=== PATIENT | male | born 1990 | race Caucasian/White ===

== ENCOUNTER 2016-08-31 16:53 | Emergency (ER) | payer OTHER, MEDICAID ==
[2016-08-31 17:00] VITALS: BP 122/64
--- NOTE | 2016-08-31 17:25 | CR ---
Clinical history: 26-year-old male heard a "pop" when he rolled his ankle. Rule out fracture. Interpretation: 3 views right ankle confirm soft tissue swelling laterally but reveal no sign of und erlying fracture or disruption of the tibiotalar mortise joint symmetry. No dislocation. Minimal ankle joint effusion. No heel spurs. No foreign bodies. CONCLUSION: Right ankle sprain. No fracture.
--- NOTE | 2016-08-31 17:56 | EDM.PDOC ---
ED HPI GENERAL MEDICAL PROBLEM - General Chief Complaint: Lower Extremity Injury/Pain Stated Complaint: WC, ANKLE, [id number] Time Seen by Provider: 08/31/16 17:45 Source of Information: Reports: Patient, Family History Limitations: Reports: No Limitations - History of Present Illness INITIAL COMMENTS - FREE TEXT/NARRATIVE: patient is a 26-year-old male who states he was at work today when he stepped off a piece of equipment and twisted his right ankle. He states he has had soft tissue swelling and pain at the site since that time. He has iced and elevated it and rates his pain a 7/10. He did not take anything for discomfort prior to arrival. He did not fall he did not strike his head he has no other complaints he denies any numbness or tingling Quality: Reports: Ache, Dull Severity: Mild Improves with: Reports: Cold Therapy, Rest Worsens with: Reports: Other (weightbearing), Movement Right Ankle Pain Score (Numeric/FACES): 8 - Related Data Allergies Allergy/AdvReac Type Severity Reaction Status Date / Time amoxicillin trihydrate Allergy Cannot Verified 08/31/16 17:29 [From Augmentin] Remember potassium clavulanate Allergy Cannot Verified 08/31/16 17:29 [From Augmentin] Remember Home Meds: Home Meds . [No Known Home Meds] 03/23/13 [History] Past Medical History - Past Health History Medical/Surgical History: Denies Medical/Surgical History Social & Family History - Tobacco Use Smoking Status *Q: Never Smoker Second Hand Smoke Exposure: Yes - Caffeine Use Caffeine Use: Reports: None - Alcohol Use Days Per Week of Alcohol Use: 0 - Recreational Drug Use Recreational Drug Use: No Review of Systems - Review of Systems Review Of Systems: ROS reveals no pertinent complaints other than HPI. Trauma Exam - Physical Exam Exam: See Below Exam Limited By: No Limitations General Appearance: Reports: Alert, WD/WN, No Apparent Distress Head: Reports: Atraumatic, Normocephalic Respiratory Exam: Reports: No Respiratory Distress, Lungs Clear, Normal Breath Sounds Cardiovascular: Reports: Normal Peripheral Pulses, Regular Rate, Rhythm, No Edema, No Gallop, No JVD, No Murmur, No Rub Extremities: No Pedal Edema, Other (the right ankle is tender to palpation with lateral soft tissue swelling. The joint is stable there is no overlying erythema or induration or signs of toxic joint. Posterior tibial and dorsal pedis pulses intact. There is limited range of motion due to pain and swelling. The knee on the right is stable there is no pain with range of motionsigns of injury to) Skin: Reports: Normal Color, Warm/Dry Course - Vital Signs Last Recorded V/S: Last Vital Signs Temp 98.8 F 08/31/16 16:59 Pulse 77 08/31/16 16:59 Resp 20 08/31/16 16:59 BP 122/64 08/31/16 16:59 Pulse Ox 98 08/31/16 16:59 - Orders/Labs/Meds Orders: Active Orders 24 hr Category Date Time Status DME for Discharge [COMM] Stat Oth 08/31/16 17:51 Ordered - Re-Assessments/Exams Free Text/Narrative Re-Assessment/Exam: 08/31/16 17:54 the patient was placed in an air stirrup and was distally neurovascularly intact after placement. Patient was ambulatory at discharge refused crutches stating he had been at home to Patient was advised to use the crutches for 3-5 days and followup with orthopedic doctor still painful in 2 weeks Was given diclofenac for discomfort and told to not mix with Motrin ibuprofen Advil Departure - Departure Time of Disposition: 17:55 Disposition: Home, Self-Care 01 Condition: good Clinical Impression: Ankle sprain Qualifiers: Encounter type: initial encounter Involved ligament of ankle: unspecified ligament Laterality: right Qualified Code(s): S93.401A - Sprain of unspecified ligament of right ankle, initial encounter - Discharge Information Instructions: Ankle Sprain, [id number] Forms: ED Department Discharge Additional Instructions: discharge diagnose Right ankle sprain Wear air stirrup and use crutches for 3-5 days or until pain free Use diclofenac as needed for the pain ICE elevate and limit weight bearing for 3-5 days. See Ortho doctor for f/u if still painful in two weeks. Call Orthopedic Christopher Brenner in [place] at [phone] Return if worse. - My Orders Last 24 Hours: My Active Orders 08/31/16 17:51 DME for Discharge [COMM] Stat - Assessment/Plan Last 24 Hours: My Active Orders 08/31/16 17:51 DME for Discharge [COMM] Stat
== END 2016-08-31 18:17 | disposition home or self-care (01) ==
LOC: DL.ED 16:53
DX: S93.401A Sprain of unspecified ligament of right ankle, initial encounter (principal); Z88.1 Allergy status to other antibiotic agents; X50.1XXA Overexertion from prolonged static or awkward postures, initial encounter; Y99.0 Civilian activity done for income or pay
CPT/HCPCS: 73610-RT; 99283

== ENCOUNTER 2017-08-03 10:36 | Emergency (ER) | payer OTHER ==
--- NOTE | 2017-08-03 10:57 | EDM.PDOC ---
ED HPI GENERAL MEDICAL PROBLEM - General Chief Complaint: Upper Extremity Injury/Pain Stated Complaint: [id number] PEELED SKIN BACK TO [employer] COMP Time Seen by Provider: 08/03/17 10:51 Source of Information: Reports: Patient, RN, RN Notes Reviewed History Limitations: Reports: No Limitations - History of Present Illness INITIAL COMMENTS - FREE TEXT/NARRATIVE: C/O pinched left index finger this morning at work when an electric motor slid into pt's hand, and cut the finger. Denies any other injury. Last tetanus vaccine >10yrs ago. Onset: Today Location: Reports: Upper Extremity, Left Quality: Reports: Ache Severity: Mild Improves with: Reports: None Worsens with: Reports: None Associated Symptoms: Reports: No Other Symptoms Left 2-Index finger Pain Score (Numeric/FACES): 5 - Related Data Allergies Allergy/AdvReac Type Severity Reaction Status Date / Time amoxicillin trihydrate Allergy Cannot Verified 08/31/16 17:29 [From Augmentin] Remember potassium clavulanate Allergy Cannot Verified 08/31/16 17:29 [From Augmentin] Remember Home Meds: Home Meds . [No Known Home Meds] 03/23/13 [History] Past Medical History - Past Health History Medical/Surgical History: Denies Medical/Surgical History Social & Family History - Family History Family Medical History: Noncontributory - Tobacco Use Smoking Status *Q: Never Smoker Second Hand Smoke Exposure: Yes - Caffeine Use Caffeine Use: Reports: None - Alcohol Use Days Per Week of Alcohol Use: 0 - Recreational Drug Use Recreational Drug Use: No - Living Situation & Occupation Occupation: Employed Review of Systems - Review of Systems Review Of Systems: ROS reveals no pertinent complaints other than HPI. ED EXAM, GENERAL - Physical Exam Exam: See Below Exam Limited By: No Limitations General Appearance: Alert, WD/WN, No Apparent Distress Head: Atraumatic, Normocephalic Respiratory/Chest: No Respiratory Distress Peripheral Pulses: 3+: Radial (L), Radial (R) Extremities: Normal Range of Motion, Normal Capillary Refill, Other (dorsal left index finger with very mild soft tissue swelling w/faint bruising and 1.5cm linear lac. overlying the prox. PIP joint w/no active bleeding, no tendon/ ligament injury, and no FB.) Neurological: Alert, Oriented, No Motor/Sensory Deficits Psychiatric: Normal Affect, Normal Mood Skin Exam: Warm, Dry ED TRAUMA EXTREMITY PROCEDURES - Laceration/Wound Repair Left Dorsal Finger Lac/Wound Length In cm: 1.5 (Left index finger) Appearance: Subcutaneous, Linear, Clean Distal NVT: Neuro & Vascular Intact, No Tendon Injury Anesthetic Type: Local Local Anesthesia - Lidocaine (Xylocaine): 1% Plain Local Anesthetic Volume: 5cc Skin Prep: Chlorhexidine (Hibiciens), Saline Saline Irrigation (cc's): 1,000 Exploration/Debridement/Repair: Wound Explored, In a Bloodless Field, Explored to Base, Moderate Debridement, Minimally Undermined Closed With: Sutures Suture Size: 3-0 # of Sutures: 5 Suture Type: Nylon, Interrupted Drain Placement: No Sterile Dressing Applied: Nurse Tetanus Status Addressed: Yes Complications: No - Splinting Left 2nd Digit Splint Site: left index finger Pre-Procedure NV Status: Normal Post-Procedure NV Status: Normal Splint Material: Metal Splint Design: Volar Applied & Form Fitted By: Nurse Provider Post-Splint Application NV Check: NV Status Normal, Good Position Complications: No Course - Vital Signs Last Recorded V/S: Last Vital Signs Temp 37.2 C 08/03/17 10:56 Pulse 78 08/03/17 10:56 Resp 12 08/03/17 10:56 BP 135/75 08/03/17 10:56 Pulse Ox 98 08/03/17 10:56 - Orders/Labs/Meds Meds: Medications Discontinued Medications Generic Name Dose Route Start Last Admin Trade Name Freq PRN Reason Stop Dose Admin Bacitracin 1 dose 08/03/17 10:58 08/03/17 11:26 Bacitracin Oint 1 Gm TOP 08/03/17 10:59 1 dose ONETIME ONE Administration Lidocaine HCl 30 ml 08/03/17 11:52 Xylocaine-Mpf 1% INJECT 08/03/17 11:53 ONETIME ONE - Radiology Interpretation Free Text/Narrative:: Xray left index finger: no fracture, see Rad. report. Departure - Departure Time of Disposition: 12:48 Disposition: Home, Self-Care 01 Condition: Good Clinical Impression: Work related injury Laceration of left index finger Qualifiers: Encounter type: initial encounter Damage to nail status: without damage Foreign body presence: without foreign body Qualified Code(s): S61.211A - Laceration without foreign body of left index finger without damage to nail, initial encounter Finger contusion Qualifiers: Encounter type: initial encounter Finger: index finger Damage to nail status: without damage Laterality: left Qualified Code(s): S60.022A - Contusion of left index finger without damage to nail, initial encounter - Discharge Information Instructions: Laceration Care, Adult, [id number] Forms: ED Department Discharge Additional Instructions: Follow up in clinic in 7 to 10 days for suture removal. Return to ER if any signs of wound infection develop, such as redness, swelling , pus drainage, fever, or severe pain.
[2017-08-03 10:58] VITALS: BP 135/75
[2017-08-03] MEDS ORDERED: Bacitracin Oint 1 GM U/D Packet TOP ONE (10:58)
--- NOTE | 2017-08-03 11:42 | CR ---
Clinical history: 27-year-old male "crush" injury second (index) finger. Interpretation: 3 views confirm mild soft tissue swelling particularly around the PIP joint. No under lying fracture or dislocation. Nail bed appears intact. No foreign bodies.
[2017-08-03] MEDS ORDERED: Lidocaine 1% 30 ML SDV INJECT ONE (11:52)
== END 2017-08-03 13:10 | disposition home or self-care (01) ==
LOC: DL.ED 10:36
DX: S61.211A Laceration without foreign body of left index finger without damage to nail, initial encounter (principal); Z88.1 Allergy status to other antibiotic agents; W22.8XXA Striking against or struck by other objects, initial encounter; Y99.0 Civilian activity done for income or pay
CPT/HCPCS: 12001; 73140-F1; 99283

== ENCOUNTER 2017-11-10 15:15 | Emergency (ER) | payer OTHER ==
[2017-11-10 15:32] VITALS: BP 119/73
[2017-11-10] MEDS ORDERED: Lidocaine 1% 30 ML SDV INJECT ONE (15:35)
[2017-11-10] MEDS ORDERED: Bacitracin Oint 1 GM U/D Packet TOP ONE (15:53)
--- NOTE | 2017-11-10 15:58 | EDM.PDOC ---
Scribed by Zina Leung 11/10/17 1551 for Venkat Lorenz MD ED HPI GENERAL MEDICAL PROBLEM - General Chief Complaint: Upper Extremity Injury/Pain Stated Complaint: NEEDS SPLINDER REMOVED. [phone] Time Seen by Provider: 11/10/17 15:35 Source of Information: Reports: Patient, RN, RN Notes Reviewed History Limitations: Reports: No Limitations - History of Present Illness INITIAL COMMENTS - FREE TEXT/NARRATIVE: Patient presents to ER after sustaining a splinter in his left index finger while he was putting a swing set together. No other injury. Tetanus is up to date. Onset: Today Duration: Constant Location: Reports: Upper Extremity, Right Quality: Reports: Ache Severity: Mild Improves with: Reports: None Worsens with: Reports: None Associated Symptoms: Reports: No Other Symptoms Right 2-Index finger Pain Score (Numeric/FACES): 6 - Related Data Allergies Allergy/AdvReac Type Severity Reaction Status Date / Time amoxicillin trihydrate Allergy Cannot Verified 11/10/17 15:54 [From Augmentin] Remember potassium clavulanate Allergy Cannot Verified 11/10/17 15:54 [From Augmentin] Remember Home Meds: Home Meds . [No Known Home Meds] 03/23/13 [History] Past Medical History - Past Health History Medical/Surgical History: Denies Medical/Surgical History HEENT History: Reports: Impaired Vision - Past Surgical History HEENT Surgical History: Reports: Oral Surgery Social & Family History - Family History Family Medical History: Noncontributory - Caffeine Use Caffeine Use: Reports: None - Living Situation & Occupation Occupation: Employed ED ROS GENERAL - Review of Systems Review Of Systems: ROS reveals no pertinent complaints other than HPI. ED EXAM, SKIN/RASH Exam: See Below Exam Limited By: No Limitations General Appearance: Alert, WD/WN, No Apparent Distress Head: Atraumatic, Normocephalic Respiratory/Chest: No Respiratory Distress Extremities: Other (right index finger lateral cuticle with wodo foreign body which tracts toward the volar finger pad. No active bleeding. No erythema. ) Neurological: Alert, No Motor/Sensory Deficits ED SKIN PROCEDURES - Foreign Body Removal Indication:: Wood splinter in Rt distal index finger. Consent Obtained:: Patient Performing Doctor:: Venkat Lorenz Anesthesia Type: Regional (digital block with Lidocaine 1% plain 4cc) Findings:: 1cm linear wood splinter removed with splinter forceps. No complications. Complications:: No Course - Vital Signs Last Recorded V/S: Last Vital Signs Temp 37.3 C 11/10/17 15:31 Pulse 119 H 11/10/17 15:31 Resp 18 11/10/17 15:31 BP 119/73 11/10/17 15:31 Pulse Ox 100 11/10/17 15:31 - Orders/Labs/Meds Meds: Medications Discontinued Medications Generic Name Dose Route Start Last Admin Trade Name Valentine PRN Reason Stop Dose Admin Bacitracin 1 dose 11/10/17 15:53 Bacitracin Oint 1 Gm TOP 11/10/17 15:54 ONETIME ONE Lidocaine HCl 30 ml 11/10/17 15:35 Xylocaine-Mpf 1% INJECT 11/10/17 15:36 ONETIME ONE Departure - Departure Time of Disposition: 15:53 Disposition: Home, Self-Care 01 Condition: Good Clinical Impression: Soft tissues foreign body, Splinter of finger - Discharge Information Instructions: Puncture Wound, [id number] Referrals: Lolita Olivas NP [Primary Care Provider] - Forms: ED Department Discharge Additional Instructions: Follow up in clinic if any signs of infection develop. I have read and agree with the documentation that has been completed regarding this visit. By signing this record, I attest that the documentation was completed in my physical presence and is an accurate record of the encounter.
== END 2017-11-10 16:13 | disposition home or self-care (01) ==
LOC: DL.ED 15:15
DX: S60.450A Superficial foreign body of right index finger, initial encounter (principal); W45.8XXA Other foreign body or object entering through skin, initial encounter; Z88.1 Allergy status to other antibiotic agents
CPT/HCPCS: 64450; 99283

== ENCOUNTER 2023-01-17 09:25 | Emergency (ER) | payer OTHER ==
[2023-01-17] MEDS ORDERED: Diphtheria,Pertussis(Acell),Tetanus Vaccine 0.5 ML Syringe IM ONE (09:40)
[2023-01-17 09:43] VITALS: BP 142/87; PULSE 76
== END 2023-01-17 10:25 | disposition home or self-care (01) ==
LOC: DL.ED 09:25
DX: S01.81XA Laceration without foreign body of other part of head, initial encounter (principal); S00.81XA Abrasion of other part of head, initial encounter; Z23 Encounter for immunization; Z88.0 Allergy status to penicillin; X58.XXXA Exposure to other specified factors, initial encounter
CPT/HCPCS: 70250; 90471; 90715; 99282; 99283-25